=== PATIENT | female | born 2000 | race Caucasian/White ===

== ENCOUNTER → 2022-04-09 | Outpatient (CLI) | payer BC ==
[~2022-04-09] VITALS: Ht 152.4 cm; Wt 63.6 kg
[~2022-04-09] MED LIST: LIDOCAINE 1% INJ 10 ML VIAL INJ ONE
--- NOTE | 2022-04-09 12:27 | Diagnostic Imaging Report ---
INDICATION: Left breast mass. Patient presents for an ultrasound guided biopsy. DETAILS OF THE PROCEDURE: The patient was brought to the sonographic suite and placed on the table in the supine position. Ultrasound imaging of the left breast was performed to evaluate for an appropriate entry site. The left breast was then prepped and draped in the usual sterile fashion. A small amount of 1% lidocaine was utilized for local anesthesia. A total of three passes was made into the solid mass in the left breast at the 4 o'clock location 5 cm from the nipple utilizing a 14-gauge Achieve needle. A marker clip was then deployed. Hemostasis was obtained using manual compression. The patient tolerated the procedure well and left the Department in stable condition. IMPRESSION: Successful ultrasound guided core biopsy of the solid mass at the 4 o'clock location of the left breast 5 cm from the nipple. Pathology results are currently pending. Dictated by: Dictated on workstation # [id number]
== END ==
LOC: RAD 10:21
PROVIDERS: ATTEND Nurse Practitioner
DX: N63.23 Unspecified lump in the left breast, lower outer quadrant (principal)
CPT/HCPCS: 19083